=== PATIENT | female | born 1960 | race Caucasian/White ===

== ENCOUNTER 2021-03-02 08:17 | Outpatient (CLI) | payer OTHER | END 2021-03-02 09:44 | disposition home or self-care (01) | LOC: NUCLEAR 08:17 | PROVIDERS: ATTEND Specialist | DX: E21.0 Primary hyperparathyroidism (principal) | CPT/HCPCS: 78070; A9500 ==

== ENCOUNTER → 2025-01-09 11:43 | Outpatient (CLI) | payer OTHER ==
[2025-01-09 13:06] LABS: CREATININE SERUM 0.68 mg/dL (0.55-1.02)
== END | disposition home or self-care (01) ==
LOC: LAB 11:43
PROVIDERS: ATTEND Radiology Diagnostic Radiology
DX: I70.0 Atherosclerosis of aorta (principal)

== ENCOUNTER 2025-01-10 10:31 | Outpatient (CLI) | payer OTHER | END 2025-01-10 10:33 | disposition home or self-care (01) | LOC: TOM 10:31 | DX: I70.0 Atherosclerosis of aorta (principal) | CPT/HCPCS: 71275 ==